=== PATIENT | male | born 1945 | race Caucasian/White ===

== ENCOUNTER 2019-04-29 17:23 | Emergency (ER) | payer MEDICARE ==
[~2019-04-29] VITALS: Ht 185.4 cm; Wt 102.0 kg
[~2019-04-29 17:23] MED LIST: AMLO2.5T2 PO; ASPI-611 PO; ATOR10TA87 PO; CHOL10002 PO; MULT1TAB74 PO; RIVA10TA PO
[2019-04-29 18:09] LABS: BASOPHILS % (AUTO) 0.3 % (0-1); EOSINOPHILS # (AUTO) 0.3 X10'3 (0-0.9); EOSINOPHILS % (AUTO) 3.6 % (0-6); HEMATOCRIT 41.2 % (42.0-52.0); HEMOGLOBIN 13.9 g/dl (14.0-17.9); LYMPHOCYTES # (AUTO) 3.2 X10'3 (1.1-4.8); LYMPHOCYTES % (AUTO) 40.7 % (21-51); MEAN CORPUSCULAR HEMOGLOBIN 31.8 PG (27.0-31.0); MEAN CORPUSCULAR HGB CONC 33.8 g/dL (33.0-36.5); MEAN CORPUSCULAR VOLUME 93.9 FL (78-98); MEAN PLATELET VOLUME 7.5 FL (7.4-10.4); MONOCYTES # (AUTO) 0.7 X10'3 (0-0.9); MONOCYTES % (AUTO) 8.9 % (2-12); NEUTROPHILS # (AUTO) 3.7 X10'3 (1.8-7.7); NEUTROPHILS % (AUTO) 46.5 % (42-75); PLATELET COUNT 206 X10'3 (140-440); RED BLOOD COUNT 4.39 X10'6 (4.70-6.10); RED CELL DISTRIBUTION WIDTH 13.3 % (11.5-14.5)
[2019-04-29 18:20] LABS: PARTIAL THROMBOPLASTIN TIME 27 SECONDS (22-32)
[2019-04-29 18:24] LABS: ALANINE AMINOTRANSFERASE 33 U/L (12-78); ALBUMIN 3.9 G/DL (3.4-5.0); ALBUMIN/GLOBULIN RATIO 1.1 (1.1-1.5); ALKALINE PHOSPHATASE 67 IU/L (46-116); ANION GAP 13 (8-16); ASPARTATE AMINO TRANSFERASE 21 U/L (10-37); BILIRUBIN,TOTAL 0.9 MG/DL (0.1-1.0); BLOOD UREA NITROGEN 12 MG/DL (7-18); BUN/CREATININE RATIO 11.8 (5.4-32.0); CALCIUM 8.9 MG/DL (8.5-10.1); CHLORIDE 104 MMOL/L (99-107); CREATININE 1.02 MG/DL (0.60-1.10); GLUCOSE 98 MG/DL (70-104); POTASSIUM 3.6 MMOL/L (3.5-5.1); SODIUM 139 MMOL/L (135-145); TOTAL CARBON DIOXIDE 22.4 MMOL/L (24-32); TOTAL PROTEIN 7.3 G/DL (6.4-8.2); eGFR 72 ML/MIN
[2019-04-29 21:07] VITALS: BP 126/85
[2019-04-29] MEDS ORDERED: NITR0.4T51 SL (21:35)
== END 2019-04-29 21:52 | disposition home or self-care (01) ==
LOC: ER 17:24
DX: R07.89 Other chest pain (principal); Z88.8 Allergy status to other drugs, medicaments and biological substances; Z79.82 Long term (current) use of aspirin; Z79.899 Other long term (current) drug therapy
CPT/HCPCS: 36415; 71045; 80053; 83880; 84484; 85025; 85610; 85730; 93005; 99284

== ENCOUNTER 2019-12-12 06:53 | Day surgery (SDC) | payer MEDICARE ==
[2019-12-08 09:40] LABS: BASOPHILS # (AUTO) 0.1 X10'3 (0-0.2); BASOPHILS % (AUTO) 1.1 % (0-1); EOSINOPHILS # (AUTO) 0.1 X10'3 (0-0.9); EOSINOPHILS % (AUTO) 1.6 % (0-6); HEMOGLOBIN 14.7 g/dl (14.0-17.9); LYMPHOCYTES # (AUTO) 1.8 X10'3 (1.1-4.8); MEAN CORPUSCULAR HEMOGLOBIN 30.8 PG (27.0-31.0); MEAN CORPUSCULAR HGB CONC 33.5 g/dL (33.0-36.5); MEAN CORPUSCULAR VOLUME 91.9 FL (78-98); MEAN PLATELET VOLUME 7.8 FL (7.4-10.4); MONOCYTES # (AUTO) 0.6 X10'3 (0-0.9); MONOCYTES % (AUTO) 7.6 % (2-12); NEUTROPHILS # (AUTO) 5.1 X10'3 (1.8-7.7); NEUTROPHILS % (AUTO) 66.7 % (42-75); PLATELET COUNT 216 X10'3 (140-440); RED BLOOD COUNT 4.78 X10'6 (4.70-6.10); RED CELL DISTRIBUTION WIDTH 13.1 % (11.5-14.5); WHITE BLOOD COUNT 7.7 X10'3 (4.5-11.0)
[2019-12-08 09:44] LABS: ALBUMIN 3.7 G/DL (3.4-5.0); ANION GAP 6 (8-16); BLOOD UREA NITROGEN 13 MG/DL (7-18); BUN/CREATININE RATIO 11.7 (5.4-32.0); CHLORIDE 107 MMOL/L (99-107); CREATININE 1.11 MG/DL (0.60-1.10); GLUCOSE 112 MG/DL (70-104); SODIUM 142 MMOL/L (135-145); TOTAL CARBON DIOXIDE 28.8 MMOL/L (24-32); eGFR 65 ML/MIN
[2019-12-08 09:49] LABS: PARTIAL THROMBOPLASTIN TIME 26 SECONDS (22-32)
[~2019-12-12] VITALS: Ht 182.9 cm; Wt 103.0 kg
[2019-12-12] VITALS (11 sets, daily range): BP systolic 104–140; BP diastolic 65–82
--- NOTE | 2019-12-12 07:00 | NUR ---
Pt ambulated independently on to unit & oriented to room.
[2019-12-12] MEDS ORDERED: LORazepam 0.5 MG tablet PO PRN (07:10)
[2019-12-12] MEDS ORDERED: diphenhydrAMINE 25mg capsule PO PRN (07:10)
[2019-12-12] MEDS ORDERED: LIDOcaine/PRILOcaine 5gm cream TP ONE (07:10)
[2019-12-12] MEDS ORDERED: normal saline 1,000 ML IV SCH (07:10)
[2019-12-12] MEDS ORDERED: FLO0.4C PO (07:17)
[2019-12-12] MEDS ORDERED: OMEP-50 PO (07:17)
[2019-12-12] MEDS ORDERED: NITR0.4T51 SL (07:21)
[2019-12-12] MEDS ORDERED: METO-539 PO (07:21)
[2019-12-12] MEDS ORDERED: CETI-194 PO (07:21)
[2019-12-12] MEDS ORDERED: verapamil 2.5 mg/ml inj IV ONE (09:34)
[2019-12-12] MEDS ORDERED: midazolam 2 mg/2 ml injection ONE (09:35)
[2019-12-12] MEDS ORDERED: LIDOcaine 1% (10mg/ml)w/preservative injection 20ml MDV ONE (09:37)
[2019-12-12] MEDS ORDERED: fentaNYL/PF 50MCG/1 ML 2ML syringe ONE (09:37)
[2019-12-12] MEDS ORDERED: heparin 1,000unit/ml 10ml vial 10 ML ONE (09:37)
[2019-12-12] MEDS ORDERED: iohexol 350MG/ML 100ml bottle IV ONE (09:38)
[2019-12-12] MEDS ORDERED: nitroGLYCERIN-Tridil 50MG/D5W 250 ML IV ONE (09:38)
[2019-12-12] MEDS ORDERED: heparin 1,000 UNITS/NS 500ml 500 ML ONE ×2 (09:38→09:39)
--- NOTE | 2019-12-12 09:45 | NUR ---
Pt transported to skilled laborer via [facility].
[2019-12-12] MEDS ORDERED: ticagrelor 90mg tablet ONE (10:08)
--- NOTE | 2019-12-12 10:50 | NUR ---
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 Pt awake, alert & in no acute distress. VSS as charted. Vasc band present to R wrist, procedure site stable, no bleeding or hematoma noted.
[2019-12-12] MEDS ORDERED: HYDROcodone/acetaminophen 5mg/325mg tablet PO PRN (11:15)
[2019-12-12] MEDS ORDERED: HYDROcodone/acetaminophen 10/325mg tab PO PRN (11:15)
[2019-12-12] MEDS ORDERED: OXAZEpam 15mg capsule PO PRN (11:15)
[2019-12-12] MEDS ORDERED: acetaminophen 325mg tablet PO PRN (11:15)
[2019-12-12] MEDS ORDERED: ondansetron/PF 4mg/2ml inj IV PRN (11:15)
[2019-12-12] MEDS ORDERED: proCHLORperazine 10 MG/2 ml inj IV PRN (11:15)
[2019-12-12] MEDS ORDERED: normal saline 1000ml 1,000 ML IV SCH (11:15)
[2019-12-12] MEDS ORDERED: nitroGLYCERIN 0.4mg SUBLingual tab SL PRN (11:15)
--- NOTE | 2019-12-12 12:44 | NUR ---
Called Dr. Mcgarry to notify MD of increased frequency of PVCs and burning chest pain unrelieved by [place] . MD stated to give pt previously ordered nitroglycerin.
--- NOTE | 2019-12-12 12:50 | NUR ---
Dr. Mcgarry at bedside. Order received for Imdur 30mg PO QD, 1st dose now. Addendum: 12/12/19 at 1302 by Misty Duffy RN Additional order called in to [facility]
[2019-12-12] MEDS ORDERED: isosorbide mononitrate 30mg tab.SR.24H PO ONE (13:00)
== END 2019-12-12 15:00 | disposition home or self-care (01) ==
LOC: SSTAY O 06:53 → MED 3N 06:53 → SSTAY O 15:00
PROVIDERS: ATTEND Internal Medicine Interventional Cardiology
DX: R94.39 Abnormal result of other cardiovascular function study (principal); I25.118 Atherosclerotic heart disease of native coronary artery with other forms of angina pectoris; I10 Essential (primary) hypertension; N40.0 Benign prostatic hyperplasia without lower urinary tract symptoms; I44.7 Left bundle-branch block, unspecified; I34.0 Nonrheumatic mitral (valve) insufficiency; E78.49 Other hyperlipidemia; I27.20 Pulmonary hypertension, unspecified; I65.23 Occlusion and stenosis of bilateral carotid arteries; I25.2 Old myocardial infarction; Z87.891 Personal history of nicotine dependence; Z79.899 Other long term (current) drug therapy
CPT/HCPCS: 36415; 80048; 85025; 85610; 85730; 93005; 93458; C1725; C1769; C1874; C1894; C9600; J1644; J2001; J2250; J3010; J7030; Q0163; Q9967; A4620; A5120; C1751; J3490

== ENCOUNTER 2022-02-28 10:45 | Emergency (ER) | payer MEDICARE, SELFPAY ==
[~2022-02-28] VITALS: Ht 182.9 cm; Wt 100.0 kg
[~2022-02-28 10:45] MED LIST changes: -AMLO2.5T2 PO; +BISO10TA16 PO; +CETI-194 PO; +FLO0.4C PO; +LOSA100T57 PO; +MULT-620 PO; -MULT1TAB74 PO; +NITR0.4T51 SL; +OMEP20CA16 PO; -RIVA10TA PO; +SPIR25TA5 PO
[2022-02-28] MEDS ORDERED: normal saline 1000ml 1,000 ML IV ONE (11:25)
[2022-02-28] MEDS ORDERED: normal saline 1000ML IV soln IVB ONE (11:25)
[2022-02-28 11:45] LABS: ALANINE AMINOTRANSFERASE 29 U/L (12-78); ALBUMIN 3.3 G/DL (3.4-5.0); ALKALINE PHOSPHATASE 63 IU/L (46-116); ANION GAP 12 (8-16); ASPARTATE AMINO TRANSFERASE 19 U/L (10-37); BILIRUBIN,TOTAL 0.5 MG/DL (0.1-1.0); BLOOD UREA NITROGEN 19 MG/DL (7-18); BUN/CREATININE RATIO 15.3 (5.4-32.0); CALCIUM 8.5 MG/DL (8.5-10.1); CHLORIDE 105 MMOL/L (99-107); CREATININE 1.24 MG/DL (0.60-1.10); GLUCOSE 152 MG/DL (70-104); SODIUM 139 MMOL/L (135-145); TOTAL CARBON DIOXIDE 22.4 MMOL/L (24-32); TOTAL PROTEIN 6.5 G/DL (6.4-8.2); eGFR 57 ML/MIN
[2022-02-28 11:49] LABS: BASOPHILS # (AUTO) 0.1 X10'3 (0-0.2); EOSINOPHILS # (AUTO) 0.3 X10'3 (0-0.9); EOSINOPHILS % (AUTO) 3.7 % (0-6); HEMATOCRIT 37.2 % (42.0-52.0); HEMOGLOBIN 12.3 g/dl (14.0-17.9); LYMPHOCYTES # (AUTO) 2.3 X10'3 (1.1-4.8); LYMPHOCYTES % (AUTO) 33.2 % (21-51); MEAN CORPUSCULAR HEMOGLOBIN 31.3 PG (27.0-31.0); MEAN CORPUSCULAR HGB CONC 33.1 g/dL (33.0-36.5); MEAN CORPUSCULAR VOLUME 94.4 FL (78-98); MEAN PLATELET VOLUME 7.7 FL (7.4-10.4); MONOCYTES # (AUTO) 0.5 X10'3 (0-0.9); MONOCYTES % (AUTO) 7.7 % (2-12); NEUTROPHILS # (AUTO) 3.8 X10'3 (1.8-7.7); NEUTROPHILS % (AUTO) 54.4 % (42-75); PLATELET COUNT 181 X10'3 (140-440); RED BLOOD COUNT 3.95 X10'6 (4.70-6.10); RED CELL DISTRIBUTION WIDTH 13.8 % (11.5-14.5)
--- NOTE | 2022-02-28 14:15 | NUR ---
PT AMBULATED TO/FROM RESTROOM WITH STEADY GAIT. DENIES DIZZINES, LIGHTHEADEDNESS DURING TRANSFER.
[2022-02-28 14:29] VITALS: BP 139/79
--- NOTE | 2022-02-28 14:36 | NUR ---
PROVIDER AT BEDSIDE.
== END 2022-02-28 14:50 | disposition home or self-care (01) ==
LOC: ER 10:46
DX: R55 Syncope and collapse (principal); R00.1 Bradycardia, unspecified; I95.9 Hypotension, unspecified; R42 Dizziness and giddiness; I25.10 Atherosclerotic heart disease of native coronary artery without angina pectoris; Z95.0 Presence of cardiac pacemaker; Z98.890 Other specified postprocedural states; Z72.89 Other problems related to lifestyle; Z88.8 Allergy status to other drugs, medicaments and biological substances; Z79.82 Long term (current) use of aspirin; Z79.899 Other long term (current) drug therapy
CPT/HCPCS: 36415; 71045; 80053; 83880; 84484; 85025; 93005; 96360; 96361; 99285; J7030

== ENCOUNTER 2022-09-26 12:18 | Emergency (ER) | payer MEDICARE, SELFPAY ==
[~2022-09-26] VITALS: Ht 185.4 cm; Wt 106.0 kg
[2022-09-26 12:27] VITALS: BP 140/80
[2022-09-26] MEDS ORDERED: HYDR-3965 PO (13:26)
== END 2022-09-26 13:44 | disposition home or self-care (01) ==
LOC: ER 12:19
DX: M25.552 Pain in left hip (principal); M79.652 Pain in left thigh; I25.10 Atherosclerotic heart disease of native coronary artery without angina pectoris; Z95.0 Presence of cardiac pacemaker; Z72.89 Other problems related to lifestyle; Z88.8 Allergy status to other drugs, medicaments and biological substances; Z79.82 Long term (current) use of aspirin; Z79.899 Other long term (current) drug therapy
CPT/HCPCS: 99283

== ENCOUNTER 2022-11-08 09:05 | Emergency (ER) | payer MEDICARE ==
[2022-11-08] MEDS ORDERED: acetaminophen 325mg tablet PO ONE (09:45)
[2022-11-08] MEDS ORDERED: morphine 4 MG/ML inj SYRINge IM ONE (09:45)
[2022-11-08] MEDS ORDERED: orphenadrine citrate 60mg/2ml inj. IM ONE (09:45)
[2022-11-08] MEDS ORDERED: BISO5POW (10:14)
[2022-11-08] MEDS ORDERED: LOSA50TA64 PO (10:14)
[2022-11-08] MEDS ORDERED: TRAM50TA2 PO (10:18)
[2022-11-08] MEDS ORDERED: FINA5TAB11 PO (10:18)
[2022-11-08] MEDS ORDERED: MELO-100 PO (10:18)
[2022-11-08] MEDS ORDERED: HYDR-3964 PO (10:48)
[2022-11-08 10:57] VITALS: BP 11/69
== END 2022-11-08 11:19 | disposition home or self-care (01) ==
LOC: ER 09:05
DX: M54.50 Low back pain, unspecified (principal); Z88.8 Allergy status to other drugs, medicaments and biological substances
CPT/HCPCS: 96372; 99284; J2270; J2360

== ENCOUNTER 2025-06-01 15:36 | Emergency (ER) | payer MEDICARE, MEDICAID ==
[~2025-06-01] VITALS: Ht 185.4 cm; Wt 95.5 kg
[~2025-06-01 15:36] MED LIST changes: -BISO10TA16 PO; +BISO5POW; +FINA5TAB11 PO; -FLO0.4C PO; -LOSA100T57 PO; +LOSA50TA64 PO; +MELO-100 PO; -MULT-620 PO; -OMEP20CA16 PO; -SPIR25TA5 PO; +TAMS-55 PO; +TRAM50TA2 PO
[2025-06-01 16:15] LABS: MEAN PLATELET VOLUME 7.1 FL (7.4-10.4); RED CELL DISTRIBUTION WIDTH 13.8 % (11.5-14.5)
--- NOTE | 2025-06-01 16:17 | RADIOLOGY REPORT ---
EXAM: DI CHEST,SINGLE VIEW HISTORY: CP TECHNIQUE: 1 view of the chest COMPARISON: None FINDINGS/IMPRESSION: LUNGS: No pleural effusion, consolidation, or pneumothorax MEDIASTINUM: Normal cardiac size. Left anterior chest cardiac device BONES: No acute osseous abnormality OTHER: None
--- NOTE | 2025-06-01 16:19 | ELECTROCARDIOGRAPH REPORT ---
[facility] Test Date: 2025-06-01 Test Time: 16:17:06 Pat Name: JUANITA MORENO Department: EMERGENCY ROOM Room: Gender: M Business Job Titles: NADIRA : 1945 Requested By: ANAIS FLYNN Order Number: [id number] Reading MD: Measurements Intervals [place] Rate: 67 P: 54 NV: 212 QRS: 245 QRSD: 144 T: 70 QT: 461 QTc: 487 Interpretive Statements Ventricular-paced rhythm No further analysis attempted due to paced rhythm Please click the below link to view image of tracing.
[2025-06-01 16:30] LABS: CREATININE 0.83 MG/DL (0.60-1.10); PRO BRAIN NATRIURETIC PEPTIDE 374 PG/ML (0-450); TOTAL CARBON DIOXIDE 27.8 MMOL/L (24-32); eCRCL 84 ML/MIN; eGFR 90 ML/MIN
--- NOTE | 2025-06-01 16:36 | Physician Documentation ---
History of Present Illness ~ Chief Complaint: Hypertension Stated Complaint: HIGH BLOOD PRESSURE Time Seen by MD: 15:48 Primary Medical Doctor: DR. FER MORRISSEY [facility] 79-year-old male presents to the ED with a complaint of one day of elevated blood pressures. Patient has recently been diagnosed with Parkinson's. States that his blood pressures have been above normal today ranging between 140 systolic to 160 systolic.. States he had a headache earlier but denies any shortness of breath or chest pain nausea vomiting. States he has been compliant with his medication. Day of Onset: Jun 01, 2025 Medication Reconciliation Allergies: Coded Allergies: enoxaparin (Verified Allergy, Mild, 06/01/25) Itching Scheduled Aspirin (Aspir 81), 1 TAB PO DAILY, (Reported) Atorvastatin Calcium* (Lipitor*), 1 TABLET PO DAILY, (Reported) Cetirizine HCl (Aller-John), 1 TAB PO DAILY, (Reported) Cholecalciferol (Vitamin D3) (Vitamin D3), 1 TAB PO DAILY, (Reported) Finasteride (Finasteride), 1 TAB PO DAILY, (Reported) Losartan Potassium (Losartan Potassium), 1 TAB PO DAILY, (Reported) Meloxicam* (Meloxicam*), 1 TAB PO BID, (Reported) Nitroglycerin SL* (Nitrostat SL*), 1 TAB SL UD, (Reported) Tamsulosin Hcl* (Flomax*), 1 TAB PO DAILY, (Reported) Tramadol HCl (Tramadol HCl), 1 TABLET PO BID, (Reported) Miscellaneous Medications Bisoprolol Fumarate (Bisoprolol Fumarate), (Reported) Past Medical History Past Medical History: Coronary Artery Disease Past Surgical History: angioplasty, pacemaker Alcohol Use: Occasionally Drug Use: none Lives with: Spouse Lives In: Home Review of Systems All Other Systems at this time: Reviewed and Negative ROS As stated above in the HPI, otherwise all systems are reviewed and negative. Physical Exam Vital Signs: Temperature: 98.6, Source: Temporal, Heart Rate: 69, Respiratory Rate: 16, BP: 160/90, Pulse Oximetry: 97, Weight: 95.450 Oxygen Flow Rate: 0 Physical Exam General: Alert, no apparent distress. Respiratory: Lungs clear, no respiratory distress. Cardiovascular: Regular rate and rhythm, no murmurs. Gastrointestinal: Soft, nontender, nondistended. Bowels sounds present. Neurologic: Oriented x4. Psychiatric: Normal mood and affect. Skin: Normal color, warm and dry. No edema, no ecchymosis. Progress Results/Orders Results/Orders Orders - ANAIS FLYNN SOFTWARE TEST SPECIALIST Chest,Single View (06/01/25 15:50) Monitor (06/01/25 15:50) Saline Lock (06/01/25 15:50) Oxygen (06/01/25 15:50) Hs Troponin I W Calculations (06/01/25 17:50) Hs Troponin I W Calculations (06/01/25 18:50) Completed Orders - ANAIS FLYNN SOFTWARE TEST SPECIALIST Chest,Single View (06/01/25 15:50) Cbc/Diff (06/01/25 15:50) BMP (06/01/25 15:50) PBNP (06/01/25 15:50) Electrocardiogram (06/01/25 15:50) Hs Troponin I W Calculations (06/01/25 15:50) Bisoprolol Tablet (Bisoprolol Tablet) (06/01/25 16:33) Metoprolol Succinate Er Tablet (Toprol X (06/01/25 16:55) Medications Received in ER Medications (Trade) Dose Ordered Sig/Kayla Route PRN Reason Start Time Stop Time Status Last Admin Dose Admin (Toprol XL (24-hour) tablet) 25 mg NOW ONCE PO 06/01/25 16:55 06/01/25 16:57 DC 06/01/25 16:59 25 MG Vital Signs 06/01/25 06/01/25 06/01/25 15:41 16:36 16:40 Temp 98.6 Pulse 69 68 Resp 16 16 B/P (MAP) 160/90 148/91 (110) Pulse Ox 97 95 O2 Flow Rate 0 0 Laboratory Tests Test 06/01/25 16:01 White Blood Count 7.2 Red Blood Count 4.09 L Hemoglobin 13.1 L Hematocrit 38.9 L Mean Corpuscular Volume 95.1 Mean Corpuscular Hemoglobin 32.1 H Mean Corpuscular Hemoglobin Concent 33.7 Red Cell Distribution Width 13.8 Platelet Count 213 Mean Platelet Volume 7.1 L Neutrophils (%) (Auto) 50.5 Lymphocytes (%) (Auto) 36.0 Monocytes (%) (Auto) 10.1 Eosinophils (%) (Auto) 2.8 Basophils (%) (Auto) 0.6 Neutrophils # (Auto) 3.6 Lymphocytes # (Auto) 2.6 Monocytes # (Auto) 0.7 Eosinophils # (Auto) 0.2 Basophils # (Auto) 0.0 CBC Comment Sodium Level 138 Potassium Level 3.9 Chloride Level 102 Carbon Dioxide Level 27.8 Anion Gap 8 Blood Urea Nitrogen 10 Creatinine 0.83 Estimated GFR/1.73 m2 90 BUN/Creatinine Ratio 12.0 Glucose Level 96 Calcium Level 8.7 Troponin I High Sensitivity 8 Pro-B-Type Natriuretic Peptide 374 Albumin 3.6 Chemistry Comments Medical Decision Making Findings This patient does not present with any signs or symptoms of a cardiac event. Laboratory values unremarkable. Patient's blood pressure was only moderately high upon arrival. I did provide him with a low-dose beta-shay to assist him and improve if his pressures. I talked with the patient at length about maintaining compliance his medications. At this point I do not see any reason to pursue further evaluation as he is has care in the outpatient setting Did offer hospitalization however patient refused Differential Dx:Considerations: Include CHF, Include HTN, essential, Include HTN, accelerated, Include HTN, malignant, Include HTN, encephalopathy, Include medical noncompliance, Include medication withdrawal, Include pulmonary edema, Include renal failure, Include -induced, Include other Departure Disposition: 01 HOME / SELF CARE / HOMELESS Impression: Primary Impression: Benign hypertension Condition: Stable Discharge Instructions: Hypertension, Adult, [id number] Referrals: NO PRIMARY CARE PROVIDER (PCP) Signature Scribe Signature: f Attestation: Scribed for Anais Flynn Polishing Machine Operator by Anais Lovell NP . 06/01/25 16:35 ANAIS FLYNN NP Jun 01, 2025 16:36
[2025-06-01] MEDS ORDERED: metoprolol succinate 25mg (24-HOUR) SR. Tablet PO STA (16:44)
[2025-06-01] MEDS: metoprolol succinate 25mg (24-HOUR) SR. Tablet PO ONE (16:59)
[2025-06-01 17:22] VITALS: BP 136/83; PULSE 66; RESP 16; TEMP 98.6; O2SAT 96
== END 2025-06-01 17:20 | disposition home or self-care (01) ==
LOC: ER 15:37
DX: I10 Essential (primary) hypertension (principal); I25.10 Atherosclerotic heart disease of native coronary artery without angina pectoris; Z88.8 Allergy status to other drugs, medicaments and biological substances; Z95.0 Presence of cardiac pacemaker; Z79.82 Long term (current) use of aspirin; Z79.899 Other long term (current) drug therapy; Z72.89 Other problems related to lifestyle
CPT/HCPCS: 36415; 71045; 80048; 83880; 84484; 85025; 93005; 99285